=== PATIENT | female | born 1975 | race Caucasian/White ===

== ENCOUNTER → 2020-08-25 15:17 | Outpatient (BNV) | payer BC, SELFPAY | PROVIDERS: PCP Internal Medicine; Visit Provider Internal Medicine Medical Oncology | DX: Z85.3 Personal history of malignant neoplasm of breast (principal); Z90.13 Acquired absence of bilateral breasts and nipples; Z92.21 Personal history of antineoplastic chemotherapy; M85.80 Other specified disorders of bone density and structure, unspecified site | CPT/HCPCS: 99213; 99214 ==

== ENCOUNTER 2021-11-20 09:11 | Outpatient (REF) | payer BC, SELFPAY ==
--- NOTE | ~2021-11-20 | MM_ITS ---
EXAMINATION: BONE DENSITOMETRY CLINICAL INDICATION: Osteopenia. COMPARISON: Baseline BD dated 08/05/2016. TECHNIQUE: Using a [employer] DXA System (software version: 13.1) manufactured by [employer], dual-energy x-ray absorptiometry was performed of the lumbar spine and left hip. The images are of good technical quality. Summary results are attached. FINDINGS: AP SPINE L1-L4: Current: BMD 0.989 g/cm2, Z-score -1.1, T-score -1.6, osteopenia, 6.3% decrease from baseline (<5% change is not significant). Baseline: BMD 1.055 g/cm2. LEFT FEMUR, NECK: Current: BMD 0.802 g/cm2, Z-score -0.8, T-score -1.7, osteopenia. Baseline: BMD 0.857 g/cm2. LEFT FEMUR, TOTAL: Current: BMD 0.861 g/cm2, Z-score -0.6, T-score -1.2, osteopenia, 2.2% decrease from baseline (<5% change is not significant). Baseline: BMD 0.880 g/cm2. IDENTIFIED RISK FACTORS: Menopause, hysterectomy, bilateral oophorectomy. HISTORY OF FRACTURE: None listed. MEDICATIONS: Calcium supplements or multivitamin, vitamin D, ERT/SERMS. MM/XR DEXA axial skeleton IMPRESSION: 1. DIAGNOSIS: Osteopenia based on the lowest T-score value of -1.7 in the femoral neck applying World Health Organization criteria. 2. 10-YEAR FRACTURE RISK PREDICTION, FRAX: Major osteoporotic fracture (clinical spine, forearm, hip or shoulder) 4.1%. Hip fracture 0.5%. 3. Treatment Recommendations: NOF guidelines recommend consideration for treatment in postmenopausal women and men age 50 and older presenting with the following: -A hip or vertebral (clinical or morphometric) fracture. -T-score less than or equal to -2.5 at the femoral neck or spine after appropriate evaluation to exclude secondary causes. -Low bone mass at the hip or spine and a 10-year fracture probability by FRAX of greater than or equal to 3% for hip fracture or greater than or equal to 20% for major osteoporotic fracture based on the [place] adapted WHO algorithm. 4. Other Recommendations: All treatment decisions require clinical judgment and consideration of individual patient factors, including patient preferences, comorbidities, previous drug use, risk factors not captured in the FRAX model (e.g. frailty, falls, vitamin D deficiency, increased bone turnover, interval significant decline in bone density) and possible under or overestimation of fracture risk by FRAX. Additional medical evaluation for secondary cause of low bone mineral density may be appropriate. FUTURE SCAN RECOMMENDATION: People with diagnosed cases of osteoporosis or at high risk for fracture should have regular bone mineral density tests. For patients eligible for Medicare, routine testing is allowed once every 2 years. The testing frequency can be increased to one year for patients who have rapidly progressing disease, those who are receiving or discontinuing medical therapy to restore bone mass, or have additional risk factors.
== END 2021-11-20 09:12 | disposition home or self-care (01) ==
LOC: HO.MAMMO 09:11
PROVIDERS: PCP Internal Medicine; Visit Provider Internal Medicine Medical Oncology
DX: Z13.820 Encounter for screening for osteoporosis (principal); M85.80 Other specified disorders of bone density and structure, unspecified site; Z78.0 Asymptomatic menopausal state
CPT/HCPCS: 77080

== ENCOUNTER 2023-03-11 09:43 | Day surgery (SDC) | payer BC, SELFPAY ==
[2023-03-11 07:02] VITALS: BMI 21.6
[2023-03-11 09:58] VITALS: BP 111/82; PULSE 89; RESP 18; TEMP 36.1; O2SAT 98
--- NOTE | 2023-03-11 10:15 | P.CONAN_ITS ---
[facility] Active Problems Active Problems: All Active Problems (Updated 03/10/23 @ 13:24 by Marleny Loyola) Breast cancer (Acute) Past Medical History Medical History Breast cancer Family History Family History Other No family history of breast cancer Surgical History Surgical History History of total abdominal hysterectomy H/O breast reconstruction H/O endoscopy H/O colonoscopy History of hysterectomy Hx of mastectomy History of Problems with Anesthesia: No Social History Social History Household Members: Spouse and Children Housing: House Are you a primary career and guidance counselor to a significant other at home: No Do you presently have visiting nurse or other home services: No Alcohol intake: current Alcohol intake frequency: holidays/special occasions only Patient Tobacco Use Status: Never used Tobacco Substance Use Type: Marijuana Substance Use Type Other:: edibles Are you DNR?: No Advance Directives: No Advance Directives Information Provided: Yes service: No Current occupational status: employed Meds Allergies Allergy/AdvReac Type Severity Reaction Status Date / Time No Known Allergies Allergy Verified 10/07/22 09:45 [No Known Allergies*] Active Medications: Current Medications Lactated Ringer's (Lr) 1,000 mls @ 50 mls/hr IVCONT .Q20H RENE Sodium Biphosphate/Sodium Phosphate (Sodium Phosphate,[place]-Dibasic 133 Ml Enema) 133 ml IA ONCE PRN PRN Reason: Poor Colonoscopy Prep Results Home Medications Medication Instructions Recorded Confirmed Last Taken Type biotin 1,000 mcg chewable tablet 1,000 mcg PO DAILY 08/25/20 10/07/22 Unknown History cholecalciferol (vitamin D3) 125 125 mcg PO DAILY 08/25/20 10/07/22 Unknown History mcg (5,000 unit) tablet (Vitamin D3) apple cider vinegar 600 mg capsule 600 mg PO BID 10/05/21 10/07/22 Unknown History multivitamin 1 tab PO DAILY 10/05/21 10/07/22 Unknown History vitamin Y19-rjkrp acid 1 piece PO DIRECTED 03/10/23 03/10/23 Unknown History vitamin E 1 cap PO DIRECTED 03/10/23 03/10/23 Unknown History Exam Exam Date and Time: March 11, 2023 1015 Height,Weight and Vital Signs: Height 5 ft 5 in Weight 58.967 kg Last Vital Signs Temp 96.9 F 03/11/23 09:58 Pulse 89 03/11/23 09:58 Resp 18 03/11/23 09:58 BP 111/82 03/11/23 09:58 Pulse Ox 98 03/11/23 09:58 O2 Del Method Room Air 03/11/23 09:58 Airway Mallampati Class: II TM Dist: >3cm Neck ROM: Full Loose/Missing/Broken Teeth: No Heart: RRR Lungs: CTA Assessment and Plan Assessment Anesthesia Assessment: Anesthesia Plan Discussed and Chart Reviewed Final Anesthetic Review History of Problems with Anesthesia: No NPO: Yes ASA Class: II Final Preanesthetic Review: Meds/Allgs Chart Reviewed, Consent Obtained/Reviewed and Anes Risks/Benef Reviewed Patient Risk: Low Procedure Risk: Low Anesthetic Plan Anesthetic Plan: MAC: Disposition: Standard PACU
[2023-03-11] MEDS: Lactated Ringers 1,000 ML 50 ML IVCONT (10:20)
[2023-03-11 11:55] VITALS: BP 113/66; PULSE 85; RESP 18; TEMP 36.4; O2SAT 100
--- NOTE | 2023-03-11 11:57 | PM.OP ---
Brief Operative Note Date of Service: 03/11/23 Pre-op diagnosis: Screening Post-op diagnosis: other (Same, Internal hemorrhoids) Procedure: Colonoscopy to the cecum and TI Surgeon: Rodrigo Diane Anesthesia: MAC Was an Cancer Registry Manager used for this Procedure?: No Estimated blood loss (mL): 0 Pathology: none sent Condition: stable Disposition: PACU
[2023-03-11 12:10] VITALS: BP 113/66; PULSE 79; RESP 18; TEMP 36.6; O2SAT 100
--- NOTE | 2023-03-11 12:19 | OP_ITS ---
DATE OF SERVICE: 03/11/2023 SURGEON: Rodrigo Diane MD INDICATIONS: The patient presents for colorectal cancer screening. Full consent has been obtained from her for this, including risks of bleeding and perforation. PREOPERATIVE DIAGNOSIS: Colorectal cancer screening. POSTOPERATIVE DIAGNOSIS: PROCEDURE PERFORMED: Colonoscopy to the cecum and terminal ileum. ESTIMATED BLOOD LOSS: COMPLICATIONS: ANESTHESIA: Monitored anesthesia care. ASSISTANTS: SPECIMENS: POSTOPERATIVE DIAGNOSES: Colorectal cancer screening, occasional sigmoid diverticulosis, small internal hemorrhoids. DESCRIPTION OF PROCEDURE: The patient was placed in the left lateral decubitus position. The digital rectal exam revealed no abnormalities. The Olympus video pediatric colonoscope was entered into the rectum and advanced easily to the cecum. Once in the cecum, I did identify normal-appearing cecal pouch with appendiceal orifice and a normal-appearing ileocecal valve. The terminal ileum was cannulated and appeared normal. The scope was withdrawn back in the colon. The entire cecum and ileocecal valve appeared normal. The scope was slowly withdrawn assessing all mucosal surfaces carefully. For the most part, preparation was excellent throughout the colon, although did require some irrigation and suctioning. I did not visualize any sign of polyps, colitis, nor angiodysplasia. There were occasional diverticula in the sigmoid colon. In the rectum, the scope was retroflexed visualizing small internal hemorrhoids, but no other pathology. The rectal mucosa appeared normal. The scope was straightened and withdrawn from the patient. She tolerated the procedure well and was returned to the recovery area in stable condition. IMPRESSION: 1. Occasional sigmoid diverticulosis. 2. Small internal hemorrhoids. PLAN: I would recommend a repeat colonoscopy in approximately 7 years for further screening given the negative exam and no family history of colon cancer, but her personal history of breast cancer and possible history of colon polyps in her father. She will otherwise see me on a p.r.n. basis. MD PATRICIO Younger/EVELIO / [phone]
== END 2023-03-11 12:59 | disposition home or self-care (01) ==
PROVIDERS: PCP Internal Medicine; Visit Provider Internal Medicine
PROC: 0DJD8ZZ Inspection of Lower Intestinal Tract, Via Natural or Artificial Opening Endoscopic (ICD-10-PCS; CPT 45378; principal; 2023-03-11 10:40)
DX: Z12.11 Encounter for screening for malignant neoplasm of colon (principal); K57.30 Diverticulosis of large intestine without perforation or abscess without bleeding; K64.8 Other hemorrhoids; Z85.3 Personal history of malignant neoplasm of breast; Z92.21 Personal history of antineoplastic chemotherapy; Z90.13 Acquired absence of bilateral breasts and nipples; Z90.710 Acquired absence of both cervix and uterus
CPT/HCPCS: 45378

== ENCOUNTER 2024-03-06 13:08 | Outpatient (REF) | payer BC, SELFPAY ==
--- NOTE | ~2024-03-06 | US_ITS ---
EXAMINATION: US DIAGNOSTIC ULTRASOUND BREAST, RIGHT CLINICAL INFORMATION: Palpable lump right breast 9:00 axis. Patient has history of bilateral mastectomy with reconstruction and implants. COMPARISON: None available. TECHNIQUE: Ultrasound of the right breast is performed with real-time walter scale imaging and color Doppler. The right breast was scanned in the 9:00 axis from the nipple to the axillary tail region, to include the area of palpable concern. FINDINGS: There is no focal suspicious finding. There is no solid mass, cystic abnormality, abnormal shadowing, or architectural abnormality. Implant in place appears intact without complication. No abnormalities seen. No correlate to the regions of palpable concern. Results are provided to the patient at time of visit by the technologist. US/US breast RT limited IMPRESSION: No findings suspicious for malignancy. The patient has undergone bilateral mastectomy with no residual breast tissue present. No evidence of implant abnormality. No correlate ultrasonographically for palpable focus 9 o'clock axis right breast. Recommend clinical management. ASSESSMENT: BI-RADS 2: Benign RECOMMENDATION: 1. Patient should be managed based on the clinical impression. 2. Otherwise, routine annual screening mammography. Electronically signed by: Jamey Vicente MD 03/06/2024 02:17 PM EDT
== END 2024-03-06 13:09 | disposition home or self-care (01) ==
LOC: HO.MAMMO 13:08
PROVIDERS: Visit Provider Internal Medicine Medical Oncology
DX: N63.15 Unspecified lump in the right breast, overlapping quadrants (principal)
CPT/HCPCS: 76642